=== PATIENT | male | born 1990 | race Hispanic/Latino ===

== ENCOUNTER 2018-11-08 01:26 | Observation (INO) | payer SELFPAY ==
[~2018-11-08] VITALS: Ht 152.4 cm; Wt 47.0 kg
--- NOTE | 2018-11-08 01:40 | NUR ---
AMBULATED TO ROOM
--- NOTE | 2018-11-08 01:49 | NUR ---
PT. C/O BILATERAL FLANK PAIN X 2 DAYS WITH VOMITING.
--- NOTE | 2018-11-08 02:35 | NUR ---
PT. ST CATH FOR URINE SAMPLE, PT. UNABLE TO VOID.
--- NOTE | 2018-11-08 02:37 | NUR ---
IVF, IV PHENERGAN GIVEN PER MD ORDER.
[2018-11-08 02:41] LABS: HEMATOCRIT 50.1 % (39.0-50.0); HEMOGLOBIN 16.8 g/dl (14.0-18.0); IMMATURE GRANULOCYTES 0.9 % (0.0-5.0); MEAN CELL VOLUME 89.3 fL CALC (80.0-100.0); MEAN CORPUSCULAR HGB 29.9 pG CALC (26.0-32.0); MEAN CORPUSCULAR HGB CONC 33.5 g/L CALC (32.0-36.0); NEUT# 13.76 thou/uL (1.82-7.42); RED BLOOD COUNT 5.61 mill/uL (4.70-6.10)
[2018-11-08 02:43] LABS: URINE BLOOD DIPSTICK MODERATE (NEGATIVE); URINE COLOR YELLOW; URINE GLUCOSE - DIPSTICK NEGATIVE (NEGATIVE); URINE KETONE NEGATIVE (NEGATIVE); URINE LEUK ESTERASE TRACE (NEGATIVE); URINE NITRITE - DIPSTICK NEGATIVE (Negative); URINE PROTEIN - DIPSTICK >=300 mg/dL (NEG-TRACE); URINE SPECIFIC GRAVITY >=1.030; URINE UROBILINOGEN - DIPSTICK 0.2 E.U./dL (0.2)
[2018-11-08 02:48] LABS: URINE BILIRUBIN - DIPSTICK NEGATIVE (NEGATIVE)
[2018-11-08 02:52] LABS: ALKALINE PHOSPHATASE 133 u/l (38-126); BILIRUBIN, TOTAL 0.7 mg/dL (0.0-1.4); BUN 30 mg/dL (9-20); BUN/CREATININE RATIO 8 (12-20 (CALC)); CARBON DIOXIDE 28 mmol/l (22-30); CHLORIDE 87 mmol/l (95-108); CPK 391 u/l (52-200); CREATININE 3.8 mg/dL (0.7-1.3); GFR 19 ML/MIN (>=60 (CALC)); GFR FOR AFR.AMER. 23 ML/MIN (>=60 (CALC)); MAGNESIUM 2.2 mg/dL (1.6-2.3); SGOT/AST 43 u/l (17-59); SODIUM 141 mmol/l (137-146); URINE AMORPH SEDIMENT MANY hpf (NONE-FER); URINE WBC 0-2 WBC/hpf (0-5)
[2018-11-08 02:58] LABS: TOTAL PROTEIN 10.9 g/dL (6.3-8.2)
[2018-11-08 03:16] LABS: ALBUMIN > 6.0 g/dL (3.2-5.0); ANION GAP 32 (6-22 (CALC)); POTASSIUM 5.6 mmol/l (3.5-5.1)
[2018-11-08 03:19] LABS: MYOGLOBIN 2304 ng/mL (0 - 121)
--- NOTE | 2018-11-08 03:36 | NUR ---
NO S/S OF NAUSEA AND VOMITING SINCE PT. HAS BEEN HERE IN THE ED.
--- NOTE | 2018-11-08 04:25 | NUR ---
PT.TAKEN TO MS FLOOR VIA STRETCHER, NO C/O AT THIS TIME.
--- NOTE | 2018-11-08 04:29 | NUR ---
LOVENOX GIVEN PER MD ORDER.
--- NOTE | 2018-11-08 04:35 | NUR ---
Admission Note Report Given to: ALEXANDER NURSE Transported by: Wheelchair X Stretcher Transported with: X Nurse Transporter X Patent IV O2 Television Specialist
--- NOTE | 2018-11-08 04:37 | NUR ---
PT. TAKEN TO AK FLOOR VIA STRETCHER, NO C/O.
--- NOTE | 2018-11-08 04:40 | NUR ---
PT ARRIVED TO MS2 VIA STRETCHER ACCOMPANIED BY ER STAFF. PT ALERT AND ORIENTED X3, AMBULATED WELL TO STANDING SCALE, WEIGHT OBTAINED. ORIENTED PT TO ROOM AND CALL JERONIMO. DISCUSSED POC, SODIUM BICARBONATE INFUSING TO LAC AT 200ML/HR PT TOLERATING WELL. ADMISSION ASSESSMENT COMPLETED. TEDS APPLIED. CALL LIGHT IN REACH,CONTINUE TO MONITOR.
[2018-11-08 04:50] VITALS: BP 130/63
[2018-11-08 07:41] VITALS: BP 112/68
--- NOTE | 2018-11-08 08:30 | NUR ---
ASSESSMENT DONE. PT IS A&O X3. PT DENIES PAIN AT THIS TIME. IVF INFSUING WELL. PT IS FLUSH TO SKIN BUT NO TEMP. RESPS EVEN AND UNLABORED. PT DENIES NEEDS AT THIS TIME. CALL LIGHT IN REACH.
--- NOTE | 2018-11-08 11:40 | NUR ---
DR. CARVAJAL AT BEDSIDE. PT IS SITTING IN THE SIDE OF THE BED EATING HIS LUNCH. PT STATED HE FEELS BETTER. MD DISCUSS POC WITH PT. PT VERBALZED UNDERSTANDING. CALL LIGHT IN REACH.
[2018-11-08 11:47] LABS: IMMATURE GRANULOCYTES 0.8 % (0.0-5.0); MEAN CELL VOLUME 89.6 fL CALC (80.0-100.0); MEAN CORPUSCULAR HGB 30.2 pG CALC (26.0-32.0); MEAN CORPUSCULAR HGB CONC 33.7 g/L CALC (32.0-36.0); NEUT# 9.74 thou/uL (1.82-7.42); RED BLOOD COUNT 4.73 mill/uL (4.70-6.10); RED CELL DISTRI WIDTH 13.2 % (11.5-15.5)
[2018-11-08 11:54] LABS: HEMATOCRIT 42.4 % (39.0-50.0); HEMOGLOBIN 14.3 g/dl (14.0-18.0)
[2018-11-08 11:59] LABS: ANION GAP 18 (6-22 (CALC)); BUN 26 mg/dL (9-20); CARBON DIOXIDE 28 mmol/l (22-30); CHLORIDE 97 mmol/l (95-108); SODIUM 139 mmol/l (137-146)
[2018-11-08 12:01] LABS: BUN/CREATININE RATIO 19 (12-20 (CALC)); CREATININE 1.4 mg/dL (0.7-1.3); GFR 60 ML/MIN (>=60 (CALC)); GFR FOR AFR.AMER. > 60 ML/MIN (>=60 (CALC)); POTASSIUM 3.8 mmol/l (3.5-5.1)
[2018-11-08 14:50] VITALS: BP 132/71
--- NOTE | 2018-11-08 16:02 | NUR ---
PT IS VISITING IN ROOM WITH FRIENDS. NO S/S OF DISTRESS NOTED. PT DENIES NEEDS AT THIS TIME. CALL LIGHT IN REACH.
--- NOTE | 2018-11-08 18:49 | NUR ---
Discharge instructions given. Patient verbalizes understanding of same. Discharged in stable condition via Ambulatory to Home with FRIENDS. All belongings sent with pt.
== END 2018-11-08 18:46 | disposition home or self-care (01) | DRG 558 ==
LOC: ED 01:26 → ED-I 03:36 → ED 04:14 → MS2 04:15
PROVIDERS: Family Medicine; Internal Medicine Nephrology; ADMIT Internal Medicine; ATTEND Internal Medicine
DX: M62.82 Rhabdomyolysis (principal); N17.9 Acute kidney failure, unspecified; E87.5 Hyperkalemia; D72.829 Elevated white blood cell count, unspecified; X30.XXXA Exposure to excessive natural heat, initial encounter; Y93.89 Activity, other specified; Y92.73 Farm field as the place of occurrence of the external cause; Y99.0 Civilian activity done for income or pay
CPT/HCPCS: G0378; J1650

== ENCOUNTER 2020-10-12 20:01 | Observation (INO) | payer SELFPAY ==
[~2020-10-12] VITALS: Ht 152.4 cm; Wt 50.0 kg
--- NOTE | 2020-10-12 20:03 | NUR ---
PATIENT TO ROOM 9 VIA WC WITH FRIEND AND NURSE,, [id number]
--- NOTE | 2020-10-12 20:40 | NUR ---
LABS DRAWN AND SENT TO LAB. PATIENT TOLERATED WELL. PLAN REVIEWED. QUESTIONS ANSWERED.
--- NOTE | 2020-10-12 21:00 | NUR ---
PATIENT RESTING, VSS. CALL JERONIMO IN REACH. CONTINUING TO MONITOR.
[2020-10-12 21:19] LABS: IMMATURE GRANULOCYTES 0.9 % (0.0-5.0); MEAN CELL VOLUME 88.4 fL CALC (80.0-100.0); MEAN CORPUSCULAR HGB 29.8 pG CALC (26.0-32.0); MEAN CORPUSCULAR HGB CONC 33.7 g/dL CAL (32.0-36.0); NEUT# 13.89 thou/uL (1.82-7.42); RED BLOOD COUNT 5.71 mill/uL (4.70-6.10); RED CELL DISTRI WIDTH 13.2 % (11.5-15.5)
[2020-10-12 21:23] LABS: HEMATOCRIT 50.5 % (39.0-50.0)
[2020-10-12 21:44] LABS: TOTAL PROTEIN 10.7 g/dL (6.3-8.2)
[2020-10-12 21:56] LABS: CREATININE 3.2 mg/dL (0.7-1.3)
[2020-10-12 21:57] LABS: ALBUMIN 5.8 g/dL (3.2-5.0); BILIRUBIN, TOTAL 1.2 mg/dL (0.0-1.4)
[2020-10-12 21:58] LABS: POTASSIUM 6.1 mmol/l (3.5-5.1)
--- NOTE | 2020-10-12 22:00 | NUR ---
FLUIDS STARTED AND IV PAIN MEDICATION GIVEN. ANISA CONTINUE TO MONITOR.
--- NOTE | 2020-10-12 22:35 | NUR ---
Reassessment of patient completed. No distress noted.
[2020-10-13] VITALS: BP 148/96
--- NOTE | 2020-10-13 | NUR ---
PT RECEIVED FROM ED TO ROOM 269. ARRIVES VIA WC ACCOMPANIED BY ITALO HOWARD. PT AMBULATORY TO BED. GAIT UNSTEADY. PT DENIES PAIN AT THIS TIME. ORIENTED TO UNIT, ROOM, CALL JERONIMO, LIGHTS, TV. ICE WATER PROVIDED. CALL JERONIMO WITHIN REACH. AGREES TO CALL PRN.
--- NOTE | 2020-10-13 00:30 | NUR ---
PHYSICAL ASSESMENT COMPLETE. PT CURRENTLY DENIES PAIN OR DISCOMFORT. SCHEDULED MEDICATIONS AND PRN MEDICATION ADMINISTERED, SEE E-MAR. ITEMS WITHIN REACH, BED LOCKED IN LOW POSITION W/ BEDRAILS UP X2. CALL JERONIMO WITHIN REACH, AGREES TO CALL PRN.
--- NOTE | 2020-10-13 00:30 | NUR ---
PHYSICAL ASSESMENT COMPLETE. PT CURRENTLY DENIES PAIN OR DISCOMFORT. SCHEDULED MEDICATIONS AND PRN MEDICATION ADMINISTERED, SEE E-MAR. PT DENIES ANY NEEDS AT THIS TIME. PLAN OF CARE REVIEWED, ITEMS WITHIN REACH, BED LOCKED IN LOW POSITION W/ BEDRAILS UP X2. CALL JERONIMO WITHIN REACH, AGREES TO CALL PRN.
[2020-10-13 04:00] VITALS: BP 133/83
[2020-10-13 06:19] LABS: MEAN CELL VOLUME 89.7 fL CALC (80.0-100.0); MEAN CORPUSCULAR HGB 29.8 pG CALC (26.0-32.0); MEAN CORPUSCULAR HGB CONC 33.2 g/dL CAL (32.0-36.0); RED BLOOD COUNT 4.67 mill/uL (4.70-6.10); RED CELL DISTRI WIDTH 13.2 % (11.5-15.5)
[2020-10-13 06:20] LABS: HEMATOCRIT 41.9 % (39.0-50.0); HEMOGLOBIN 13.9 g/dl (14.0-18.0)
--- NOTE | 2020-10-13 06:32 | NUR ---
PT RECEIVED HEPARIN. SPOKE TO PT THROUGH AN HOSPICE CARE SALES CONSULTANT. ADOMINAL PAIN IS UNDER CONTROL. WILL CONTINUE TO MONITOR.
[2020-10-13 06:42] LABS: BUN 23 mg/dL (9-20); CALCULATED LDLCHOLESTEROL 118 mg/dL (62-129 (CALC)); CARBON DIOXIDE 25 mmol/l (22-30); CHLORIDE 98 mmol/l (95-108); CHOLESTEROL HDL RATIO 2.7 (<4.4 (CALC)); HDL CHOLESTEROL 78 mg/dL (>=40); MAGNESIUM 2.6 mg/dL (1.6-2.3); SODIUM 136 mmol/l (137-146); TOTAL CHOLESTEROL 215 mg/dl (0-199); TOTAL TRIGLYCERIDES 95 mg/dl (30-149); VLDL CHOLESTROL 19 mg/dl (5-56 (CALC))
[2020-10-13 06:44] LABS: ANION GAP 17 (6-22 (CALC)); BUN/CREATININE RATIO 18 (12-20 (CALC)); CREATININE 1.3 mg/dL (0.7-1.3); GFR > 60 ML/MIN (>=60 (CALC)); GFR FOR AFR.AMER. > 60 ML/MIN (>=60 (CALC)); POTASSIUM 4.2 mmol/l (3.5-5.1)
--- NOTE | 2020-10-13 07:00 | NUR ---
RECIEVED REPORT FROM ANTIA JIMÉNEZ.
--- NOTE | 2020-10-13 07:31 | NUR ---
PT RSTING IN LOW FOWLERS POSITION. PT IS A/O X3 AND KYRGYZ SPEAKING ONLY, STAFF TO ASSIST WITH TRANSLATION. ASSESSMENT AND VITALS COMEPLETED. BP 138/92, HR 71, O2 100% ON ROOM AIR. RESPIRATIONS ARE EVEN AND UNLABORED WITH NO DISTRESS NOTED. LUNG SOUNDS ARE CLEAR. HEART RHYTHM IS NORMAL. BOWEL SOUNDS ARE ACTIVE. RADIAL AND PEDAL PULSES ARE STRONG. #20G IN RAC INFUSING WITH IVF PER ORDER, SITE REMAINS HEALTHY AND PATENT. SKIN INTACT. PT DENIES OF ANY PAINS AT THIS TIME. PT NOTIFIED OF NEEDED URINE. PT VERBALIZED UNDERSTANDING. ALL SAFETY PRECAUTIONS ARE IN PLACE WITH CALL LIGHT IN REACH. ENCOURAGED PT TO CALLL FOR ASSISTCE IF NEEDED. WILL CONTINUE TO MONITOR.
[2020-10-13 07:40] VITALS: BP 138/92
--- NOTE | 2020-10-13 09:04 | NUR ---
DR DEMPSEY AT BEDSIDE
--- NOTE | 2020-10-13 09:37 | NUR ---
URINE SAMPLE OBTAINED
[2020-10-13 09:50] LABS: URINE BILIRUBIN - DIPSTICK NEGATIVE (NEGATIVE); URINE BLOOD DIPSTICK TRACE-INTACT (NEGATIVE); URINE COLOR YELLOW; URINE GLUCOSE - DIPSTICK NEGATIVE (NEGATIVE); URINE KETONE NEGATIVE (NEGATIVE); URINE LEUK ESTERASE NEGATIVE (NEGATIVE); URINE PROTEIN - DIPSTICK 100 mg/dL (NEG-TRACE); URINE SPECIFIC GRAVITY >=1.030; URINE UROBILINOGEN - DIPSTICK 0.2 E.U./dL (0.2)
[2020-10-13 10:02] LABS: URINE NITRITE - DIPSTICK NEGATIVE (Negative)
[2020-10-13 10:03] LABS: URINE RBC 0-2 RBC/hpf (0-5)
[2020-10-13] MEDS ORDERED: ZOFRAN4 MG/TAB PO (10:41)
--- NOTE | 2020-10-13 11:56 | NUR ---
PT EDUCTAED ON D/C INSTRUCTIONS AND ZOFRAN. PT VERBALIZED UNDERSTANDING. SHOSHANA HOOKS TO ASSIST WITH TRANSLATION. IV REMOVED WITH CATHATER STILL INTACT. PT TOERATED WELL. PT WAITING FOR FRIEND IN 274 TO BE D/C WELL. WILL CONTINUE TO MONITOR.
--- NOTE | 2020-10-13 12:16 | NUR ---
Discharge instructions given. Patient verbalizes understanding of same. Discharged in stable condition via Wheelchair to Home with family. All belongings sent with pt. PT D/C HOME VIA WHEELCHAIR IN STABLE CONDITION ACCOMPAINED BY ANITA VALENTINE WITH ALL BELONGINGS AND DC INSTRUCTIONS.
== END 2020-10-13 12:15 | disposition home or self-care (01) | DRG 641 ==
LOC: ED 20:01 → ED-I 22:37 → ED 23:39 → MS2 23:40
PROVIDERS: Family Medicine; Nurse Practitioner; ADMIT Internal Medicine; ATTEND Internal Medicine
DX: E86.0 Dehydration (principal); N17.9 Acute kidney failure, unspecified; M62.82 Rhabdomyolysis; E83.52 Hypercalcemia; E87.5 Hyperkalemia; E87.2 Acidosis; F10.10 Alcohol abuse, uncomplicated; F15.10 Other stimulant abuse, uncomplicated; Z20.822 Contact with and (suspected) exposure to COVID-19
CPT/HCPCS: G0378

== ENCOUNTER 2021-01-23 13:49 | Emergency (ER) | payer SELFPAY ==
[~2021-01-23] VITALS: Ht 152.4 cm; Wt 52.0 kg
[~2021-01-23 13:49] MED LIST: ZOFRAN4 MG/TAB PO
[2021-01-23] MEDS ORDERED: CORTISPORIN OTI10 ML AS (15:29)
[2021-01-23] MEDS ORDERED: DEBROX6.5 % AD (15:29)
[2021-01-23] MEDS ORDERED: AMOXICILLIN875 MG PO (15:29)
[2021-01-23 15:48] VITALS: BP 110/70
== END 2021-01-23 15:48 | disposition home or self-care (01) | DRG 153 ==
LOC: ED 13:49
DX: H66.92 Otitis media, unspecified, left ear (principal); H60.92 Unspecified otitis externa, left ear; H61.21 Impacted cerumen, right ear

== ENCOUNTER 2021-10-23 21:19 | Emergency (ER) | payer SELFPAY ==
[~2021-10-23] VITALS: Ht 152.4 cm; Wt 55.0 kg
[~2021-10-23 21:19] MED LIST changes: +AMOXICILLIN875 MG PO; +CORTISPORIN OTI10 ML AS; +DEBROX6.5 % AD
[2021-10-23 22:30] VITALS: BP 121/77
[2021-10-23 22:48] VITALS: BP 121/77
== END 2021-10-23 22:52 | disposition home or self-care (01) | DRG 605 ==
LOC: ED 21:19
DX: S50.311A Abrasion of right elbow, initial encounter (principal); S60.312A Abrasion of left thumb, initial encounter; S60.222A Contusion of left hand, initial encounter; Y04.0XXA Assault by unarmed brawl or fight, initial encounter